=== PATIENT | female | born 1980 | race American Indian/Alaskan Native ===

== ENCOUNTER 2018-06-28 09:02 | Outpatient (CLI) | payer OTHER ==
[2018-06-28] MEDS ORDERED: XYLOCAINE TOPICAL 4% TP ONE (09:17)
== END 2018-06-28 09:03 | disposition home or self-care (01) ==
LOC: WOUND 09:02
PROVIDERS: ATTEND Surgery
DX: E11.621 Type 2 diabetes mellitus with foot ulcer (principal); L97.521 Non-pressure chronic ulcer of other part of left foot limited to breakdown of skin
CPT/HCPCS: 97605

== ENCOUNTER 2018-06-28 10:47 | Outpatient (CLI) | payer OTHER | END 2018-06-28 10:48 | disposition home or self-care (01) | LOC: LAB 10:47 | PROVIDERS: ATTEND Surgery | DX: S91.311A Laceration without foreign body, right foot, initial encounter (principal); E11.621 Type 2 diabetes mellitus with foot ulcer; L97.424 Non-pressure chronic ulcer of left heel and midfoot with necrosis of bone; I10 Essential (primary) hypertension; E66.01 Morbid (severe) obesity due to excess calories; M19.90 Unspecified osteoarthritis, unspecified site; X58.XXXA Exposure to other specified factors, initial encounter; Y93.89 Activity, other specified; Y92.89 Other specified places as the place of occurrence of the external cause; Y99.8 Other external cause status | CPT/HCPCS: 36415; 83036 ==

== ENCOUNTER 2018-07-05 09:01 | Outpatient (CLI) | payer OTHER ==
[2018-07-05] MEDS ORDERED: XYLOCAINE TOPICAL 4% TP ONE (09:20)
== END 2018-07-05 09:02 | disposition home or self-care (01) ==
LOC: WOUND 09:01
PROVIDERS: ATTEND Surgery
DX: E11.621 Type 2 diabetes mellitus with foot ulcer (principal); L97.521 Non-pressure chronic ulcer of other part of left foot limited to breakdown of skin
CPT/HCPCS: 97605

== ENCOUNTER 2018-07-12 08:56 | Outpatient (CLI) | payer OTHER ==
[2018-07-12] MEDS ORDERED: XYLOCAINE TOPICAL 4% TP ONE (09:00)
[2018-07-12] MEDS ORDERED: SILVER NITRATE TP ONE (09:01)
== END 2018-07-12 08:57 | disposition home or self-care (01) ==
LOC: WOUND 08:56
PROVIDERS: ATTEND Surgery
DX: E11.621 Type 2 diabetes mellitus with foot ulcer (principal); L97.525 Non-pressure chronic ulcer of other part of left foot with muscle involvement without evidence of necrosis
CPT/HCPCS: 97605

== ENCOUNTER 2018-07-19 07:59 | Outpatient (CLI) | payer OTHER | END 2018-07-19 08:00 | disposition home or self-care (01) | LOC: WOUND 07:59 | PROVIDERS: ATTEND Surgery | DX: T87.89 Other complications of amputation stump (principal); E11.621 Type 2 diabetes mellitus with foot ulcer; L97.424 Non-pressure chronic ulcer of left heel and midfoot with necrosis of bone; S91.311A Laceration without foreign body, right foot, initial encounter; X58.XXXA Exposure to other specified factors, initial encounter; Y93.89 Activity, other specified; Y92.89 Other specified places as the place of occurrence of the external cause; Y99.8 Other external cause status; Y83.5 Amputation of limb(s) as the cause of abnormal reaction of the patient, or of later complication, without mention of misadventure at the time of the procedure | CPT/HCPCS: 11043; 11046; 82962; 97605; G0277; 99183 ==

== ENCOUNTER 2018-07-20 11:04 | Outpatient (CLI) | payer OTHER | END 2018-07-20 11:05 | disposition home or self-care (01) | LOC: WOUND 11:04 | PROVIDERS: ATTEND Surgery | DX: E11.621 Type 2 diabetes mellitus with foot ulcer (principal); L97.424 Non-pressure chronic ulcer of left heel and midfoot with necrosis of bone; S91.311D Laceration without foreign body, right foot, subsequent encounter; X58.XXXD Exposure to other specified factors, subsequent encounter | CPT/HCPCS: 82962; G0277; 99183 ==

== ENCOUNTER 2018-07-21 07:58 | Outpatient (CLI) | payer OTHER | END 2018-07-21 07:59 | disposition home or self-care (01) | LOC: WOUND 07:58 | PROVIDERS: ATTEND Surgery | DX: E11.621 Type 2 diabetes mellitus with foot ulcer (principal); L97.424 Non-pressure chronic ulcer of left heel and midfoot with necrosis of bone; S91.311D Laceration without foreign body, right foot, subsequent encounter; X58.XXXD Exposure to other specified factors, subsequent encounter | CPT/HCPCS: 82962; G0277; 99183 ==

== ENCOUNTER 2018-07-22 07:56 | Outpatient (CLI) | payer OTHER | END 2018-07-22 07:57 | disposition home or self-care (01) | LOC: WOUND 07:56 | PROVIDERS: ATTEND Surgery | DX: E11.621 Type 2 diabetes mellitus with foot ulcer (principal); L97.424 Non-pressure chronic ulcer of left heel and midfoot with necrosis of bone; S91.311D Laceration without foreign body, right foot, subsequent encounter; X58.XXXD Exposure to other specified factors, subsequent encounter | CPT/HCPCS: 82962; 97605 ==

== ENCOUNTER 2018-07-25 07:56 | Outpatient (CLI) | payer OTHER | END 2018-07-25 07:57 | disposition home or self-care (01) | LOC: WOUND 07:56 | PROVIDERS: ATTEND Surgery | DX: E11.621 Type 2 diabetes mellitus with foot ulcer (principal); L97.424 Non-pressure chronic ulcer of left heel and midfoot with necrosis of bone; S91.311D Laceration without foreign body, right foot, subsequent encounter; X58.XXXD Exposure to other specified factors, subsequent encounter | CPT/HCPCS: 82962; G0277; 99183 ==

== ENCOUNTER 2018-07-26 07:56 | Outpatient (CLI) | payer OTHER ==
[2018-07-26] MEDS ORDERED: XYLOCAINE TOPICAL 4% TP ONE (10:59)
== END 2018-07-26 07:57 | disposition home or self-care (01) ==
LOC: WOUND 07:56
PROVIDERS: ATTEND Surgery
DX: E11.621 Type 2 diabetes mellitus with foot ulcer (principal); L97.522 Non-pressure chronic ulcer of other part of left foot with fat layer exposed; S91.311D Laceration without foreign body, right foot, subsequent encounter; X58.XXXD Exposure to other specified factors, subsequent encounter
CPT/HCPCS: 11042; 11045; 82962; 97605; G0277; 99183

== ENCOUNTER 2018-07-27 08:00 | Outpatient (CLI) | payer OTHER | END 2018-07-27 08:01 | disposition home or self-care (01) | LOC: WOUND 08:00 | PROVIDERS: ATTEND Surgery | DX: E11.9 Type 2 diabetes mellitus without complications (principal); I10 Essential (primary) hypertension; E66.01 Morbid (severe) obesity due to excess calories; D64.9 Anemia, unspecified | CPT/HCPCS: 82962 ==

== ENCOUNTER 2018-08-01 08:05 | Outpatient (CLI) | payer OTHER | END 2018-08-01 08:06 | disposition home or self-care (01) | LOC: WOUND 08:05 | PROVIDERS: ATTEND Surgery | DX: E11.621 Type 2 diabetes mellitus with foot ulcer (principal); L97.424 Non-pressure chronic ulcer of left heel and midfoot with necrosis of bone; S91.311D Laceration without foreign body, right foot, subsequent encounter; X58.XXXD Exposure to other specified factors, subsequent encounter | CPT/HCPCS: 82962; G0277; 99183 ==

== ENCOUNTER 2018-08-02 07:57 | Outpatient (CLI) | payer OTHER ==
[2018-08-02] MEDS ORDERED: XYLOCAINE TOPICAL 4% TP ONE (11:02)
== END 2018-08-02 07:58 | disposition home or self-care (01) ==
LOC: WOUND 07:57
PROVIDERS: ATTEND Surgery
DX: E11.621 Type 2 diabetes mellitus with foot ulcer (principal); L97.424 Non-pressure chronic ulcer of left heel and midfoot with necrosis of bone; S90.811D Abrasion, right foot, subsequent encounter; X58.XXXD Exposure to other specified factors, subsequent encounter
CPT/HCPCS: 11042; 82962; 97605; G0277; 99183

== ENCOUNTER 2018-08-08 07:59 | Outpatient (CLI) | payer OTHER | END 2018-08-08 08:00 | disposition home or self-care (01) | LOC: WOUND 07:59 | PROVIDERS: ATTEND Surgery | DX: E11.621 Type 2 diabetes mellitus with foot ulcer (principal); L97.424 Non-pressure chronic ulcer of left heel and midfoot with necrosis of bone; S91.311D Laceration without foreign body, right foot, subsequent encounter; X58.XXXD Exposure to other specified factors, subsequent encounter | CPT/HCPCS: 82962; G0277; 99183 ==

== ENCOUNTER 2018-08-09 07:54 | Outpatient (CLI) | payer OTHER ==
[2018-08-09] MEDS ORDERED: XYLOCAINE TOPICAL 4% TP ONE (10:59)
== END 2018-08-09 07:55 | disposition home or self-care (01) ==
LOC: WOUND 07:54
PROVIDERS: ATTEND Surgery
DX: E11.621 Type 2 diabetes mellitus with foot ulcer (principal); L97.424 Non-pressure chronic ulcer of left heel and midfoot with necrosis of bone; S91.311D Laceration without foreign body, right foot, subsequent encounter; X58.XXXD Exposure to other specified factors, subsequent encounter
CPT/HCPCS: 11043; 82962; 97605; G0277; 99183

== ENCOUNTER 2018-08-10 07:53 | Outpatient (CLI) | payer OTHER | END 2018-08-10 07:54 | disposition home or self-care (01) | LOC: WOUND 07:53 | PROVIDERS: ATTEND Surgery | DX: E11.621 Type 2 diabetes mellitus with foot ulcer (principal); L97.424 Non-pressure chronic ulcer of left heel and midfoot with necrosis of bone; S91.311D Laceration without foreign body, right foot, subsequent encounter; X58.XXXD Exposure to other specified factors, subsequent encounter | CPT/HCPCS: 82962; G0277; 99183 ==

== ENCOUNTER 2018-08-11 08:02 | Outpatient (CLI) | payer OTHER | END 2018-08-11 08:03 | disposition home or self-care (01) | LOC: WOUND 08:02 | PROVIDERS: ATTEND Surgery | DX: E11.621 Type 2 diabetes mellitus with foot ulcer (principal); L97.424 Non-pressure chronic ulcer of left heel and midfoot with necrosis of bone; S91.311D Laceration without foreign body, right foot, subsequent encounter; X58.XXXD Exposure to other specified factors, subsequent encounter | CPT/HCPCS: 82962; G0277; 99183 ==

== ENCOUNTER 2018-08-12 07:57 | Outpatient (CLI) | payer OTHER | END 2018-08-12 07:58 | disposition home or self-care (01) | LOC: WOUND 07:57 | PROVIDERS: ATTEND Surgery | DX: E11.621 Type 2 diabetes mellitus with foot ulcer (principal); L97.424 Non-pressure chronic ulcer of left heel and midfoot with necrosis of bone; S91.311D Laceration without foreign body, right foot, subsequent encounter; X58.XXXD Exposure to other specified factors, subsequent encounter | CPT/HCPCS: 82962; 97605; G0277; 99183 ==

== ENCOUNTER 2018-08-15 08:05 | Outpatient (CLI) | payer OTHER | END 2018-08-15 08:06 | disposition home or self-care (01) | LOC: WOUND 08:05 | PROVIDERS: ATTEND Surgery | DX: E11.621 Type 2 diabetes mellitus with foot ulcer (principal); L97.424 Non-pressure chronic ulcer of left heel and midfoot with necrosis of bone; S91.311D Laceration without foreign body, right foot, subsequent encounter; X58.XXXD Exposure to other specified factors, subsequent encounter | CPT/HCPCS: 82962; G0277; 99183 ==

== ENCOUNTER 2018-08-16 08:03 | Outpatient (CLI) | payer OTHER ==
[2018-08-16] MEDS ORDERED: XYLOCAINE TOPICAL 4% TP ONE (11:07)
== END 2018-08-16 08:04 | disposition home or self-care (01) ==
LOC: WOUND 08:03
PROVIDERS: ATTEND Surgery
DX: E11.621 Type 2 diabetes mellitus with foot ulcer (principal); L97.424 Non-pressure chronic ulcer of left heel and midfoot with necrosis of bone; S91.311D Laceration without foreign body, right foot, subsequent encounter; X58.XXXD Exposure to other specified factors, subsequent encounter
CPT/HCPCS: 11043; 82962; 97605; G0277; 99183

== ENCOUNTER 2018-08-17 07:56 | Outpatient (CLI) | payer OTHER | END 2018-08-17 07:57 | disposition home or self-care (01) | LOC: WOUND 07:56 | PROVIDERS: ATTEND Surgery | DX: E11.621 Type 2 diabetes mellitus with foot ulcer (principal); L97.424 Non-pressure chronic ulcer of left heel and midfoot with necrosis of bone; S91.311D Laceration without foreign body, right foot, subsequent encounter; X58.XXXD Exposure to other specified factors, subsequent encounter | CPT/HCPCS: 82962; G0277; 99183 ==

== ENCOUNTER 2018-08-19 10:55 | Outpatient (CLI) | payer OTHER | END 2018-08-19 10:56 | disposition home or self-care (01) | LOC: WOUND 10:55 | CPT/HCPCS: 97605 ==

== ENCOUNTER 2018-08-23 10:32 | Outpatient (CLI) | payer OTHER ==
[2018-08-23] MEDS ORDERED: XYLOCAINE TOPICAL 4% TP ONE (11:48)
[2018-08-23] MEDS ORDERED: SILVER NITRATE TP ONE (11:48)
== END 2018-08-23 10:33 | disposition home or self-care (01) ==
LOC: WOUND 10:32
PROVIDERS: ATTEND Surgery
DX: T87.89 Other complications of amputation stump (principal); E11.621 Type 2 diabetes mellitus with foot ulcer; L97.524 Non-pressure chronic ulcer of other part of left foot with necrosis of bone; L84 Corns and callosities; Y83.5 Amputation of limb(s) as the cause of abnormal reaction of the patient, or of later complication, without mention of misadventure at the time of the procedure
CPT/HCPCS: 97605

== ENCOUNTER 2018-08-24 09:59 | Outpatient (CLI) | payer OTHER | END 2018-08-24 10:00 | disposition home or self-care (01) | LOC: WOUND 09:59 | PROVIDERS: ATTEND Surgery | DX: E11.621 Type 2 diabetes mellitus with foot ulcer (principal); L97.424 Non-pressure chronic ulcer of left heel and midfoot with necrosis of bone; S91.311D Laceration without foreign body, right foot, subsequent encounter; X58.XXXD Exposure to other specified factors, subsequent encounter | CPT/HCPCS: 82962; G0277; 99183 ==

== ENCOUNTER 2018-08-26 08:30 | Outpatient (CLI) | payer OTHER | END 2018-08-26 08:31 | disposition home or self-care (01) | LOC: WOUND 08:30 | PROVIDERS: ATTEND Surgery | DX: E11.621 Type 2 diabetes mellitus with foot ulcer (principal); L97.424 Non-pressure chronic ulcer of left heel and midfoot with necrosis of bone; S91.311D Laceration without foreign body, right foot, subsequent encounter; X58.XXXD Exposure to other specified factors, subsequent encounter | CPT/HCPCS: 82962; 97605; G0277; 99183 ==

== ENCOUNTER 2018-08-29 10:08 | Outpatient (CLI) | payer OTHER | END 2018-08-29 10:09 | disposition home or self-care (01) | LOC: WOUND 10:08 | PROVIDERS: ATTEND Surgery | DX: E11.621 Type 2 diabetes mellitus with foot ulcer (principal); L97.424 Non-pressure chronic ulcer of left heel and midfoot with necrosis of bone; S91.311D Laceration without foreign body, right foot, subsequent encounter; X58.XXXD Exposure to other specified factors, subsequent encounter | CPT/HCPCS: 82962; 99183; G0277 ==

== ENCOUNTER 2018-08-30 09:59 | Outpatient (CLI) | payer OTHER | END 2018-08-30 10:00 | disposition home or self-care (01) | LOC: WOUND 09:59 | PROVIDERS: ATTEND Surgery | DX: E11.621 Type 2 diabetes mellitus with foot ulcer (principal); L97.424 Non-pressure chronic ulcer of left heel and midfoot with necrosis of bone; S91.311D Laceration without foreign body, right foot, subsequent encounter; X58.XXXD Exposure to other specified factors, subsequent encounter | CPT/HCPCS: 15275; 82962; G0277; Q4158; 99183 ==

== ENCOUNTER 2018-08-31 09:58 | Outpatient (CLI) | payer OTHER | END 2018-08-31 09:59 | disposition home or self-care (01) | LOC: WOUND 09:58 | PROVIDERS: ATTEND Surgery | DX: E11.621 Type 2 diabetes mellitus with foot ulcer (principal); L97.424 Non-pressure chronic ulcer of left heel and midfoot with necrosis of bone; S91.311D Laceration without foreign body, right foot, subsequent encounter; X58.XXXD Exposure to other specified factors, subsequent encounter | CPT/HCPCS: 82962; 99183; G0277 ==

== ENCOUNTER 2018-09-02 09:54 | Outpatient (CLI) | payer OTHER | END 2018-09-02 09:55 | disposition home or self-care (01) | LOC: WOUND 09:54 | PROVIDERS: ATTEND Surgery | DX: E11.621 Type 2 diabetes mellitus with foot ulcer (principal); L97.424 Non-pressure chronic ulcer of left heel and midfoot with necrosis of bone; S91.311D Laceration without foreign body, right foot, subsequent encounter; X58.XXXD Exposure to other specified factors, subsequent encounter | CPT/HCPCS: 82962; G0277; 99183 ==

== ENCOUNTER 2018-09-05 10:11 | Outpatient (CLI) | payer OTHER | END 2018-09-05 10:12 | disposition home or self-care (01) | LOC: WOUND 10:11 | PROVIDERS: ATTEND Surgery | DX: E11.621 Type 2 diabetes mellitus with foot ulcer (principal); L97.424 Non-pressure chronic ulcer of left heel and midfoot with necrosis of bone; S91.311D Laceration without foreign body, right foot, subsequent encounter; X58.XXXD Exposure to other specified factors, subsequent encounter | CPT/HCPCS: 82962; G0277; 99183 ==

== ENCOUNTER 2018-09-06 09:55 | Outpatient (CLI) | payer OTHER ==
[2018-09-06] MEDS ORDERED: SODIUM CHLORIDE FLUSH SYRINGE 10 ML IV ONE (10:59)
== END 2018-09-06 09:56 | disposition home or self-care (01) ==
LOC: WOUND 09:55
PROVIDERS: ATTEND Surgery
DX: E11.621 Type 2 diabetes mellitus with foot ulcer (principal); L97.424 Non-pressure chronic ulcer of left heel and midfoot with necrosis of bone; S91.311D Laceration without foreign body, right foot, subsequent encounter; I10 Essential (primary) hypertension; X58.XXXD Exposure to other specified factors, subsequent encounter
CPT/HCPCS: 15275; 82962; G0277; Q4158; 99183

== ENCOUNTER 2018-09-07 09:39 | Outpatient (CLI) | payer OTHER | END 2018-09-07 09:40 | disposition home or self-care (01) | LOC: WOUND 09:39 | PROVIDERS: ATTEND Surgery | DX: E11.621 Type 2 diabetes mellitus with foot ulcer (principal); L97.424 Non-pressure chronic ulcer of left heel and midfoot with necrosis of bone; S91.311D Laceration without foreign body, right foot, subsequent encounter; X58.XXXD Exposure to other specified factors, subsequent encounter | CPT/HCPCS: 82962; G0277; 99183 ==

== ENCOUNTER 2018-09-08 08:55 | Outpatient (CLI) | payer OTHER | END 2018-09-08 08:56 | disposition home or self-care (01) | LOC: WOUND 08:55 | PROVIDERS: ATTEND Surgery | DX: E11.621 Type 2 diabetes mellitus with foot ulcer (principal); L97.424 Non-pressure chronic ulcer of left heel and midfoot with necrosis of bone; S91.311D Laceration without foreign body, right foot, subsequent encounter; X58.XXXD Exposure to other specified factors, subsequent encounter | CPT/HCPCS: 82962; G0277; 99183 ==

== ENCOUNTER 2018-09-14 09:30 | Outpatient (CLI) | payer OTHER ==
[2018-09-14] MEDS ORDERED: AD OINTMENT TP PRN (10:00)
[2018-09-14] MEDS ORDERED: XYLOCAINE TOPICAL 4% TP ONE (10:00)
[2018-09-14] MEDS ORDERED: SODIUM CHLORIDE FLUSH SYRINGE 10 ML IV PRN (10:00)
== END 2018-09-14 09:31 | disposition home or self-care (01) ==
LOC: WOUND 09:30
PROVIDERS: ATTEND Surgery
DX: E11.621 Type 2 diabetes mellitus with foot ulcer (principal); L97.424 Non-pressure chronic ulcer of left heel and midfoot with necrosis of bone; S91.311D Laceration without foreign body, right foot, subsequent encounter; X58.XXXD Exposure to other specified factors, subsequent encounter
CPT/HCPCS: 15275; Q4158; A6250

== ENCOUNTER 2018-09-20 08:55 | Outpatient (CLI) | payer OTHER ==
[2018-09-20] MEDS ORDERED: SODIUM CHLORIDE FLUSH SYRINGE 10 ML IV PRN (09:22)
[2018-09-20] MEDS ORDERED: XYLOCAINE TOPICAL 4% TP ONE (09:30)
[2018-09-20] MEDS ORDERED: AD OINTMENT TP SCH (10:00)
== END 2018-09-20 08:56 | disposition home or self-care (01) ==
LOC: WOUND 08:55
PROVIDERS: ATTEND Surgery
DX: E11.621 Type 2 diabetes mellitus with foot ulcer (principal); L97.424 Non-pressure chronic ulcer of left heel and midfoot with necrosis of bone
CPT/HCPCS: 15275; Q4158; A6250

== ENCOUNTER 2018-09-27 09:17 | Outpatient (CLI) | payer OTHER | END 2018-09-27 09:18 | disposition home or self-care (01) | LOC: WOUND 09:17 | PROVIDERS: ATTEND Surgery | DX: E11.621 Type 2 diabetes mellitus with foot ulcer (principal); L97.424 Non-pressure chronic ulcer of left heel and midfoot with necrosis of bone; S91.311D Laceration without foreign body, right foot, subsequent encounter; X58.XXXD Exposure to other specified factors, subsequent encounter | CPT/HCPCS: 15275; Q4158 ==

== ENCOUNTER 2018-10-04 09:14 | Outpatient (CLI) | payer OTHER | END 2018-10-04 09:15 | disposition home or self-care (01) | LOC: WOUND 09:14 | PROVIDERS: ATTEND Surgery | DX: E11.621 Type 2 diabetes mellitus with foot ulcer (principal); L97.424 Non-pressure chronic ulcer of left heel and midfoot with necrosis of bone; S91.311D Laceration without foreign body, right foot, subsequent encounter; X58.XXXD Exposure to other specified factors, subsequent encounter ==

== ENCOUNTER 2018-10-11 09:30 | Outpatient (CLI) | payer OTHER ==
[2018-10-11] MEDS ORDERED: SILVER NITRATE TP ONE (09:44)
[2018-10-11] MEDS ORDERED: XYLOCAINE TOPICAL 4% TP ONE (09:45)
== END 2018-10-11 09:31 | disposition home or self-care (01) ==
LOC: WOUND 09:30
PROVIDERS: ATTEND Surgery
DX: E11.621 Type 2 diabetes mellitus with foot ulcer (principal); L97.424 Non-pressure chronic ulcer of left heel and midfoot with necrosis of bone; S91.311D Laceration without foreign body, right foot, subsequent encounter; X58.XXXD Exposure to other specified factors, subsequent encounter

== ENCOUNTER 2018-10-18 08:59 | Outpatient (CLI) | payer OTHER ==
[2018-10-18] MEDS ORDERED: XYLOCAINE TOPICAL 4% TP ONE (09:14)
== END 2018-10-18 09:00 | disposition home or self-care (01) ==
LOC: WOUND 08:59
PROVIDERS: ATTEND Surgery
DX: E11.621 Type 2 diabetes mellitus with foot ulcer (principal); S91.311D Laceration without foreign body, right foot, subsequent encounter; L97.424 Non-pressure chronic ulcer of left heel and midfoot with necrosis of bone; X58.XXXD Exposure to other specified factors, subsequent encounter

== ENCOUNTER 2018-10-25 09:34 | Outpatient (CLI) | payer OTHER | END 2018-10-25 09:35 | disposition home or self-care (01) | LOC: WOUND 09:34 | PROVIDERS: ATTEND Surgery | DX: E11.621 Type 2 diabetes mellitus with foot ulcer (principal); L97.424 Non-pressure chronic ulcer of left heel and midfoot with necrosis of bone; S91.311D Laceration without foreign body, right foot, subsequent encounter; X58.XXXD Exposure to other specified factors, subsequent encounter ==

== ENCOUNTER 2019-05-26 08:04 | Outpatient (CLI) | payer OTHER ==
[2019-05-26] MEDS ORDERED: LIDOCAINE (4%) 40 MG/ML TOPICAL SOLN 50 ML BOTTLE TP ONE (08:30)
== END 2019-05-26 08:05 | disposition home or self-care (01) ==
LOC: WOUND 08:04
PROVIDERS: ATTEND Surgery
DX: E11.621 Type 2 diabetes mellitus with foot ulcer (principal); L97.522 Non-pressure chronic ulcer of other part of left foot with fat layer exposed; E11.40 Type 2 diabetes mellitus with diabetic neuropathy, unspecified; Z79.4 Long term (current) use of insulin; Z89.422 Acquired absence of other left toe(s)
CPT/HCPCS: 11042; G0463; 99214

== ENCOUNTER 2019-06-09 09:02 | Outpatient (CLI) | payer OTHER ==
[2019-06-09] MEDS ORDERED: LIDOCAINE (4%) 40 MG/ML TOPICAL SOLN 50 ML BOTTLE TP ONE (10:00)
== END 2019-06-09 09:03 | disposition home or self-care (01) ==
LOC: WOUND 09:02
PROVIDERS: ATTEND Surgery
DX: E11.621 Type 2 diabetes mellitus with foot ulcer (principal); L97.522 Non-pressure chronic ulcer of other part of left foot with fat layer exposed; L84 Corns and callosities; E11.40 Type 2 diabetes mellitus with diabetic neuropathy, unspecified; E66.9 Obesity, unspecified; Z68.43 Body mass index [BMI] 50.0-59.9, adult; Z79.4 Long term (current) use of insulin; Z89.422 Acquired absence of other left toe(s)

== ENCOUNTER 2019-06-16 08:59 | Outpatient (CLI) | payer OTHER ==
[2019-06-16] MEDS ORDERED: LIDOCAINE (4%) 40 MG/ML TOPICAL SOLN 50 ML BOTTLE TP ONE (09:30)
== END 2019-06-16 09:00 | disposition home or self-care (01) ==
LOC: WOUND 08:59
PROVIDERS: ATTEND Surgery
DX: E11.621 Type 2 diabetes mellitus with foot ulcer (principal); L97.522 Non-pressure chronic ulcer of other part of left foot with fat layer exposed; L84 Corns and callosities; E11.40 Type 2 diabetes mellitus with diabetic neuropathy, unspecified; E66.9 Obesity, unspecified; Z68.43 Body mass index [BMI] 50.0-59.9, adult; Z79.4 Long term (current) use of insulin; Z89.422 Acquired absence of other left toe(s)

== ENCOUNTER 2019-06-30 09:01 | Outpatient (CLI) | payer OTHER ==
[2019-06-30] MEDS ORDERED: LIDOCAINE (4%) 40 MG/ML TOPICAL SOLN 50 ML BOTTLE TP ONE (09:30)
== END 2019-06-30 09:02 | disposition home or self-care (01) ==
LOC: WOUND 09:01
PROVIDERS: ATTEND Surgery
DX: E11.621 Type 2 diabetes mellitus with foot ulcer (principal); L97.522 Non-pressure chronic ulcer of other part of left foot with fat layer exposed; L84 Corns and callosities; E11.40 Type 2 diabetes mellitus with diabetic neuropathy, unspecified; E66.9 Obesity, unspecified; Z68.43 Body mass index [BMI] 50.0-59.9, adult; Z79.4 Long term (current) use of insulin; Z89.422 Acquired absence of other left toe(s)

== ENCOUNTER 2019-07-07 08:46 | Outpatient (CLI) | payer OTHER ==
[2019-07-07] MEDS ORDERED: LIDOCAINE (4%) 40 MG/ML TOPICAL SOLN 50 ML BOTTLE TP ONE (09:30)
== END 2019-07-07 08:47 | disposition home or self-care (01) ==
LOC: WOUND 08:46
PROVIDERS: ATTEND Surgery
DX: E11.621 Type 2 diabetes mellitus with foot ulcer (principal); L97.522 Non-pressure chronic ulcer of other part of left foot with fat layer exposed; L84 Corns and callosities; E11.40 Type 2 diabetes mellitus with diabetic neuropathy, unspecified; E66.9 Obesity, unspecified; Z68.43 Body mass index [BMI] 50.0-59.9, adult; Z79.4 Long term (current) use of insulin; Z89.422 Acquired absence of other left toe(s)
CPT/HCPCS: 99214; G0463

== ENCOUNTER 2019-07-14 08:45 | Outpatient (CLI) | payer OTHER | END 2019-07-14 08:46 | disposition home or self-care (01) | LOC: WOUND 08:45 | PROVIDERS: ATTEND Surgery | DX: E11.621 Type 2 diabetes mellitus with foot ulcer (principal); L97.522 Non-pressure chronic ulcer of other part of left foot with fat layer exposed; L84 Corns and callosities; E11.40 Type 2 diabetes mellitus with diabetic neuropathy, unspecified; E66.9 Obesity, unspecified; Z68.43 Body mass index [BMI] 50.0-59.9, adult; Z79.4 Long term (current) use of insulin; Z89.422 Acquired absence of other left toe(s) | CPT/HCPCS: 99213; G0463 ==